=== PATIENT | male | born 1980 | race Caucasian/White ===

== ENCOUNTER 2019-08-17 02:51 | Emergency (ER) | payer OTHER ==
[~2019-08-17] VITALS: Ht 175.3 cm; Wt 100.4 kg
[2019-08-17 02:53] VITALS: BP 137/80
[2019-08-17] MEDS ORDERED: OXYcodone/APAP 5/325MG TABLET PO ONE (03:30)
[2019-08-17] MEDS ORDERED: GABA300C10 PO (03:31)
[2019-08-17] MEDS ORDERED: OXYcodone/APAP 5/325MG TABLET ONE (03:32)
== END 2019-08-17 03:52 | disposition home or self-care (01) ==
LOC: ED 03:30
DX: G56.03 Carpal tunnel syndrome, bilateral upper limbs (principal)
CPT/HCPCS: 99283